=== PATIENT | female | born 1985 | race Caucasian/White ===

== ENCOUNTER 2022-02-23 16:38 | Emergency (ER) | payer OTHER ==
[2022-02-23 17:32] LABS: Absolute Lymphocytes (CBC) 1.6 K/uL (0.7-4.9); Hematocrit 38.6 % (36.0-45.0); Lymphocytes % 19.6 % (15.3-44.8); MPV 11.2 fL (7.6-11.3); RBC Red Blood Cell Count 4.34 M/uL (3.86-4.86)
--- NOTE | 2022-02-23 17:56 | RAD REPORT ---
EXAM DESCRIPTION: RAD - Chest Single View - 02/23/2022 5:46 pm CLINICAL HISTORY: CHEST PAIN COMPARISON: No comparisons FINDINGS: Lines: None. Lungs: No evidence of edema or pneumonia. Pleural: No significant pleural effusions or pneumothorax. Cardiac: The heart size is within normal limits. Bones: No acute fractures. Other: IMPRESSION: No acute cardiopulmonary disease.
[2022-02-23 17:59] LABS: BUN Blood Urea Nitrogen 10 mg/dL (7-18); Bicarbonate 27 mmol/L (21-32); Creatine Phosphokinase 50 U/L (26-192); Glucose Level 93 mg/dL (74-106); Magnesium 2.2 mg/dL (1.8-2.4); NT PRO-BNP 50 pg/mL (<125); Potassium 3.5 mmol/L (3.5-5.1); Sodium Level 141 mmol/L (136-145); Troponin High Sensitivity 3.4 pg/mL (<58.9)
[2022-02-23 18:03] LABS: C-Reactive Protein < 2.90 mg/L (<3.00)
[2022-02-23] MEDS ORDERED: KETOROLAC 30 MG/ML INJ ONE (18:13)
--- NOTE | 2022-02-23 18:14 | EDPHYS ---
Physician Documentation [facility] Name: Stefany Webb Age: 37 yrs Sex: Female : 1985 Arrival Date: 02/23/2022 Time: 16:39 Bed 10 Private MD: ED Physician Crispin Corona HPI: 02/23 17:11 This 37 yrs old Female presents to ER via Ambulatory with complaints of Arm Pain, Leg jr8 Pain, Chest Pain, finger numbness. 17:11 The patient or guardian reports chest pain that is located primarily in the substernal jr8 area, anterior chest wall, left. The pain radiates to the left arm, the left scapula. Associated signs and symptoms: Pertinent positives: tingling left arm. The chest pain is described as sharp. Duration: The patient or guardian reports multiple episodes, that are intermittent. Modifying factors: The symptoms are alleviated by nothing. the symptoms are aggravated by nothing. Severity of pain: At its worst the pain was moderate in the emergency department the pain is unchanged. The patient has not experienced similar symptoms in the past. The patient has not recently seen a physician. 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 - Social history:: Smoking status: Patient denies any tobacco usage or history of. ROS: 17:11 Eyes: Negative for injury, pain, redness, and discharge, ENT: Negative for injury, jr8 pain, and discharge, Neck: Negative for injury, pain, and swelling, Respiratory: Negative for shortness of breath, cough, wheezing, and pleuritic chest pain, Abdomen/GI: Negative for abdominal pain, nausea, vomiting, diarrhea, and constipation, Back: Negative for injury and pain, MS/Extremity: Negative for injury and deformity, Skin: Negative for injury, rash, and discoloration, Neuro: Negative for headache, weakness, numbness, tingling, and seizure. 17:11 Cardiovascular: Positive for chest pain, Negative for edema, orthopnea, palpitations, paroxysmal nocturnal dyspnea. Exam: 17:11 Constitutional: This is a well developed, well nourished patient who is awake, alert, jr8 and in no acute distress. Neck: Trachea midline, no thyromegaly or masses palpated, and no cervical lymphadenopathy. Supple, full range of motion without nuchal rigidity, or vertebral point tenderness. No Meningismus. Cardiovascular: Regular rate and rhythm with a normal S1 and S2. No gallops, murmurs, or rubs. Normal PMI, no JVD. No pulse deficits. Respiratory: Lungs have equal breath sounds bilaterally, clear to auscultation and percussion. No rales, rhonchi or wheezes noted. No increased work of breathing, no retractions or nasal flaring. Abdomen/GI: Soft, non-tender, with normal bowel sounds. No distension or tympany. No guarding or rebound. No evidence of tenderness throughout. Back: No spinal tenderness. No costovertebral tenderness. Full range of motion. Skin: Warm, dry with normal turgor. Normal color with no rashes, no lesions, and no evidence of cellulitis. MS/ Extremity: Pulses equal, no cyanosis. Neurovascular intact. Full, normal range of motion. Neuro: Awake and alert, GCS 15, oriented to person, place, time, and situation. Cranial nerves II-XII grossly intact. Motor strength 5/5 in all extremities. Sensory grossly intact. 17:11 Chest/axilla: Inspection: normal, Palpation: tenderness, that is mild, of the anterior aspect of left upper chest, that does not reproduce the patient's complaints, Axilla: are normal, no mass, no palpable nodes. 18:29 ECG was reviewed by the Attending Physician. jr8 Vital Signs: 16:51 BP 153 / 97; Pulse 88; Resp 18 S; Temp 98.5(TE); Pulse Ox 100% on R/A; Weight 65.77 kg aa5 (R); Height 5 ft. 11 in. (180.34 cm) (R); 18:10 BP 142 / 89; Pulse 85; Resp 15; Pulse Ox 100% ; jl7 16:51 Body Mass Index 20.22 (65.77 kg, 180.34 cm) aa5 MDM: 16:55 Patient medically screened. 8 18:07 Data reviewed: vital signs, nurses notes, lab test result(s), EKG, radiologic studies, jr8 plain films. Data interpreted: Pulse oximetry: on room air is 100 %. Interpretation: normal. Counseling: I had a detailed discussion with the patient and/or guardian regarding: the historical points, exam findings, and any diagnostic results supporting the discharge/admit diagnosis, lab results, radiology results, the need for outpatient follow up, a medical donation professional, to return to the emergency department if symptoms worsen or persist or if there are any questions or concerns that arise at home. 18:13 Special discussion: Based on the patient's history, exam, and Dx evaluation, there is jr8 no indication for emergent intervention or inpatient Tx. It is understood by the patient/guardian that if the Sx's persist or worsen they need to return immediately for re-evaluation. 02/23 16:58 Order name: Basic Metabolic Panel; Complete Time: 18:07 jr8 02/23 16:58 Order name: CBC with Diff; Complete Time: 18:00 8 02/23 16:58 Order name: Magnesium; Complete Time: 18: jr8 02/23 16:58 Order name: NT PRO-BNP; Complete Time: 18: jr8 02/23 16:58 Order name: Troponin HS; Complete Time: 18: jr8 02/23 16:58 Order name: XRAY Chest (1 view); Complete Time: 18:00 jr8 02/23 16:58 Order name: EKG; Complete Time: 16:59 jr8 02/23 17:11 Order name: ESR; Complete Time: 18:00 jr8 02/23 17:24 Order name: Creatine Phosphokinase; Complete Time: 18:07 EDMS 02/23 17:24 Order name: C-Reactive Protein; Complete Time: 18:07 EDMS 02/23 16:58 Order name: EKG - Nurse/Tech; Complete Time: 17:05 jr8 02/23 16:58 Order name: IV Saline Lock; Complete Time: 17:24 jr8 02/23 16:58 Order name: Labs collected and sent; Complete Time: 17:24 jr8 02/23 16:58 Order name: O2 Per Protocol; Complete Time: 17: jr8 02/23 16:58 Order name: O2 Sat Monitoring; Complete Time: : EC:29 Rate is 89 beats/min. Rhythm is regular, Normal Sinus Rhythm. QRS [place] is Normal. SC jr8 interval is normal. QRS interval is normal. QT interval is normal. No Q waves. T waves are Normal. No ST changes noted. Clinical impression: Normal ECG. Interpreted by me. Reviewed by me. Administered Medications: 18:10 Drug: Ketorolac 15 mg Route: IVP; Site: right antecubital; jl7 18:27 Follow up: Response: No adverse reaction; Pain is decreased jl7 Disposition: 19:03 Co-signature as Attending Physician, Crispin Corona MD. rn Disposition Summary: 02/23/22 18:13 Discharge Ordered Location: Home jr8 Problem: new jr8 Symptoms: have improved jr8 Condition: Stable jr8 Diagnosis - Chest pain, unspecified jr8 Followup: jr8 - With: William Lou MD - When: 2 - 3 days - Reason: Recheck today's complaints, Continuance of care, Re-evaluation by your physician Discharge Instructions: - Discharge Summary Sheet jr8 - Nonspecific Chest Pain, Adult jr8 Forms: - Medication Reconciliation Form jr8 - Thank You Letter jr8 - Antibiotic Education jr8 - Prescription Opioid Use jr8 Signatures: Dispatcher [employer] EDMS Crispin Corona MD MD rn Calderon, Audri RN RN aa5 True Wright PA PA jr8 Charo Soto RN RN jl7 Corrections: (The following items were deleted from the chart) 17:24 17:12 CREATINE PHOSPHOKINASE+C.LAB.BRZ ordered. EDMS EDMS 17:24 17:12 C-REACTIVE PROTEIN+C.LAB.BRZ ordered. EDMS EDMS
--- NOTE | 2022-02-23 18:14 | ER ---
Nurse's Notes [facility] Name: Stefany Webb Age: 37 yrs Sex: Female : 1985 Arrival Date: 02/23/2022 Time: 16:39 Bed 10 Private MD: Diagnosis: Chest pain, unspecified Presentation: 02/23 16:51 Chief complaint: Patient states: "I've been having chest pain for months and today I aa5 feel short of breath and the dental office receptionist at the [facility] [employer] sent me here". Coronavirus screen: At this time, the client does not indicate any symptoms associated with coronavirus-19. Ebola Screen: No symptoms or risks identified at this time. Initial Sepsis Screen: Does the patient meet any 2 criteria? No. Patient's initial sepsis screen is negative. Does the patient have a suspected source of infection? No. Patient's initial sepsis screen is negative. Risk Assessment: Do you want to hurt yourself or someone else? Patient reports no desire to harm self or others. Onset of symptoms was 2021. 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 - Social history:: Smoking status: Patient denies any tobacco usage or history of. Screenin:10 Abuse screen: Denies threats or abuse. Denies injuries from another. Nutritional jl7 screening: No deficits noted. Tuberculosis screening: No symptoms or risk factors identified. Fall Risk IV access (20 points). Total Braeux Fall Scale indicates No Risk (0-24 pts). Assessment: 17:15 General: Appears in no apparent distress. uncomfortable, Behavior is calm, cooperative, jl7 appropriate for age. Pain: Complains of pain in anterior aspect of left upper chest Pain radiates to back Pain currently is 8 out of 10 on a pain scale. Quality of pain is described as sharp, Pain began gradually, Is continuous. Neuro: Level of Consciousness is awake, alert, obeys commands, Oriented to person, place, time, situation. Cardiovascular: Patient's skin is warm and dry. Rhythm is regular. Respiratory: Airway is patent Respiratory effort is even, unlabored, Respiratory pattern is regular, symmetrical. Derm: Skin is pink, warm \\T\\ dry. 18:25 Reassessment: Patient appears in no apparent distress at this time. Patient and/or jl7 family updated on plan of care and expected duration. Pain level reassessed. Patient is alert, oriented x 3, equal unlabored respirations, skin warm/dry/pink. Patient states feeling better. Patient states symptoms have improved. Vital Signs: 16:51 BP 153 / 97; Pulse 88; Resp 18 S; Temp 98.5(TE); Pulse Ox 100% on R/A; Weight 65.77 kg aa5 (R); Height 5 ft. 11 in. (180.34 cm) (R); 18:10 BP 142 / 89; Pulse 85; Resp 15; Pulse Ox 100% ; jl7 16:51 Body Mass Index 20.22 (65.77 kg, 180.34 cm) aa5 ED Course: 16:39 Patient arrived in ED. am2 16:51 Arm band placed on. aa5 16:52 Triage completed. aa5 16:55 True Wright PA is PHCP. jr8 16:55 Crispin Corona MD is Attending Physician. jr8 16:56 Charo Soto RN is Primary Nurse. jl7 17:00 Patient has correct armband on for positive identification. 5 17:30 Initial lab(s) drawn, by ri, sent to lab. EKG done, by ED staff, reviewed by True PEREZ. Inserted saline lock: 20 gauge in right antecubital area, using aseptic technique. Blood collected. 17:47 XRAY Chest (1 view) In Process Unspecified. EDMS 18:10 Pulse ox on. NIBP on. jl7 18:10 No provider procedures requiring assistance completed. Patient maintains SpO2 jl7 saturation greater than 95% on room air. 18:13 William Lou MD is Referral Physician. jr8 18:20 IV discontinued, intact, bleeding controlled, No redness/swelling at site. Pressure jl7 dressing applied. 18:21 IV discontinued, Pressure dressing applied. mh5 Administered Medications: 18:10 Drug: Ketorolac 15 mg Route: IVP; Site: right antecubital; 7 18:27 Follow up: Response: No adverse reaction; Pain is decreased jl7 Outcome: 18:13 Discharge ordered by . nilsa 18:30 Discharged to home ambulatory. jl7 18:30 Condition: stable 18:30 Discharge instructions given to patient, Instructed on discharge instructions, follow up and referral plans. Demonstrated understanding of instructions, follow-up care. 18:30 Patient left the ED. jl7 Signatures: Dispatcher [employer] EDMS Manuela Miranda, RN RN aa5 True Wright PA PA 8 Mi iRch 5 Charo Soto RN RN jl7 Grace Coe Corrections: (The following items were deleted from the chart) 16:53 16:53 LMP 01/24/2000 [facility]
[2022-02-23 20:37] VITALS: TEMP 98.5; O2SAT 100
[2022-02-23 20:38] VITALS: BP 142/89
--- NOTE | 2022-02-24 09:33 | EKG ---
Test Date: 2022-02-23 Test Time: 17:05:11 Shoe Repairman: LUCITA MEASUREMENT RESULTS: Intervals: Rate: 89 ND: 138 QRSD: 76 QT: 374 QTc: 455 [place]: P: 62 ND: 138 QRS: 65 T: 94 INTERPRETIVE STATEMENTS: Normal sinus rhythm Cannot rule out Anteroseptal infarct, age undetermined Abnormal ECG No previous ECG available for comparison Electronically Signed On 02-24-22 09:31:47 CDT by William Lou
== END 2022-02-23 18:30 | disposition home or self-care (01) ==
LOC: ER 16:38
DX: R07.9 Chest pain, unspecified (principal)
CPT/HCPCS: 36415; 71045; 80048; 82550; 83735; 83880; 84484; 85025; 85652; 86140; 93005; 96374; 99284

== ENCOUNTER 2024-02-06 13:47 | Emergency (ER) | payer OTHER ==
--- OUTSIDE RECORDS SUMMARY | 2024-02-06 13:51 | XMS REPORT | Continuity of Care Document ---
Author Name Unknown Address [address] [place] [address] [facility] thconnect Address [address] [place] [address] Care Team Providers Care Gamemaster Name Role Phone No , Pcp Primary Care Physician CHRISTIANO El Attending Clinician LULA Correa Attending Clinician LULA Cordova Attending Clinician Luis Archibald MD, David Vazquez Attending Clini mya STEVE DELACRUZ Attending Clinician STEVE Simons Attending Clinician Regan jones Doctor Unassigned, [place] Attending Clinician DAVID Rm M.D. Attending Clinician Un available MD MAMADOU Attending Clinician Unavailable Payers Payer Name Policy Type Policy Number Effective Date Expirati on Date Source HARRY WERNER [id number] 2023 00:00:00 ANDIE Torres [id number] 2023 00:00:00 [facility] [id number] 2022 00:00:00 Problems Condition Name Condition Details Condition Category Status Onset Date Resolution Date Last Treatment Date Treating Clinician Comments Source Pain pelvic Pain pelvic Disease Active 03-16 00:00: 00 [facility] Menorrhagi a with regular cycle Menorrhagi a with regular cycle Disease Active 03-16 00:00: 00 [facility] IUD (intrauter ine device) in place IUD (intrauter ine device) in place Disease Active 03-16 00:00: 00 [facility] Missed Missed Disease Active 02-01 00:00: 00 Overview: Formattin g of this note might be different from the original. Added automatic ally from request for surgery [id number] [facility] Tubal ligation status Tubal ligation status Disease Active 01-25 00:00: 00 [facility] Supervisio n of high risk , antepartum Supervisio n of high risk , antepartum Disease Active 01-17 00:00: 00 [facility] [place]au disease [place] disease Disease Active 01-17 00:00: 00 [facility] Depression , unspecifie d depression type Depression , unspecifie d depression type Disease Active 01-17 00:00: 00 [facility] Family history of genetic disease Family history of genetic disease Disease Active 02-27 00:00: 00 [facility] Former smoker Former smoker Disease Active 02-14 00:00: 00 [facility] History of depression History of depression Problem Resolve d [facility] Word finding difficulty Word finding difficulty Problem Active [facility] Memory change Memory change Problem Active [facility] Attention and concentrat ion deficit Attention and concentrat ion deficit Problem Active [facility] 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 Problem Active [facility] Major depressive disorder, recurrent episode, moderate with anxious distress Major depressive disorder, recurrent episode, moderate with anxious distress Problem Active [facility] Insomnia, unspecifie d type Insomnia, unspecifie d type Problem Active [facility] Anxiety Anxiety Problem Active [facility] RLS (restless legs syndrome) RLS (restless legs syndrome) Problem Active [facility] Allergies, Adverse Reactions, Alerts Allergy Name Allergy Type Status Severity Reaction(s) Onset Date Inactive Date Treating Clinician Comments Source NO KNOWN ALLERGIE S Drug Class Active [facility] Family History Family Member Diagnosis Comments Start Date Stop Date Sourc e Unknown Family Member Family history of Alzheimer's disease Other [facility] Grandmother Family history of Alzheimer's disease [facility] Grandmother Family history of schizophrenia [facility] aunt Family history of Joseph's chorea [facility] Mother Family history of [place]'s chorea [facility] Father Family history of depression [facility] Father Family history of HT N (hypertension), benign [facility] Grandfather Family history of [place]'s chorea [facility] Social History Social Habit Start Date Stop Date Quantity Comments Source History of tobacco use Cigarette Smoker [facility] Sexual orientation [facility] Tobacco use and exposure 2023-08-18 00:00:00 2023-08-18 00:00:00 Smokeless tobacco non-user [facility] History of Social function 2023-08-18 00:00:00 2023-08-18 00:00:00 [facility] Cigarettes smoked current (pack per day) - Reported 2023-03-16 00:00:00 2023-03-16 00:00:00 [facility] Cigarette pack-years 2023-03-16 00:00:00 2023-03-16 00:00:00 [facility] Alcohol intake 2023-03-16 00:00:00 2023-03-16 00:00:00 Current non-drinker of alcohol (finding) [facility] Tobacco Comment 2023-03-16 00:00:00 2023-03-16 00:00:00 quit once she had postive test [facility] Sex Assigned At 1985 00:00:00 1985 00:00:00 [facility] Smoking Status Start Date Stop Date Source Smoker (finding) [facility] Smokes tobacco daily (finding) [facility] Ex-smoker 2023-08-18 00:00:00 2023-08-18 00:00:00 [facility] Medications Ordered Medication Name Filled Medication Name Start Date Stop Date Current Medication? Ordering Clinician Indication Dosage Frequency Signature (SIG) Comments Components Source vit calc,iron,f olic ( VITAMIN ORAL) 03-16 13:14: 42 Yes [id number] Take by mouth. [facility] vit calc,iron,f olic ( VITAMIN ORAL) 02-23 14:27: 26 Yes [id number] Take by mouth. [facility] ibuprofen 600 mg tablet 02-06 00:00: 00 Yes [id number] 600mg Take 1 tablet by mouth every 6 (six) hours as needed (pain, cramping). [facility] acetaminoph en (TYLENOL) 325 mg Cap 02-06 00:00: 00 Yes [id number] 650mg Take 650 mg by mouth every 6 (six) hours as needed (pain, cramping). [facility] DULoxetine HCl - 60 MG Oral Capsule Delayed Release Particles DULoxetine HCl - 60 MG Oral Capsule Delayed Release Particles 2017-11 00:00: 00 Yes DAVID LISSETTE-STIMM ING M.D. TAKE ONE CAPSULE BY MOUTH DAILY [facility] clonazePAM 0.5 MG Oral Tablet clonazePAM 0.5 MG Oral Tablet 2017-11 00:00: 00 Yes DAVID LISSETTE-STIMM ING M.D. TAKE 1/2 TO 1 TABLET AT BEDTIME NEEDED. [facility] Melatonin 5 MG Oral Tablet Melatonin 5 MG Oral Tablet 05-26 00:00: 00 Yes MIGUEL FERRIS M.D. TAKE 1 TAB BY MOUTH AT BEDTIME. MAY TAKE AN ADDITIONAL TAB IF NOT EFFECTIVE IN 30 MINUTES OR IF WAKE IN NIGHT [facility] Tylenol PM Extra Strength 500-25 MG Oral Tablet Tylenol PM Extra Strength 500-25 MG Oral Tablet Yes [facility] Vital Signs Vital Name Observation Time Observation Value Comments S ource Systolic blood pressure 2023-03-16 18:13:00 136 mm[Hg] [facility] Diastolic blood pressure 2023-03-16 18:13:00 81 mm[Hg] [facility] Heart rate 2023-03-16 18:13:00 122 /min [facility] Body temperature 2023-03-16 18:13:00 36.72 Yolis [facility] Respiratory rate 2023-03-16 18:13:00 17 /min [facility] Body height 2023-03-16 18:13:00 180.3 cm [facility] Body weight 2023-03-16 18:13:00 67.132 kg [facility] BMI 2023-03-16 18:13:00 20.64 kg/m2 [facility] Procedures Procedure Date / Time Performed Performing Clinicia n Source ASSIGNMENT OF BENEFITS 2023-03-16 18:03:14 Docto r Unassigned, [place] [facility] [[facility]] CBC (INCLUDES DIFF/PLT) 2020-01-17 00:00:00 [facility] [H] Iron, TIBC \T\ Ferritin 2020-01-17 00:00:00 [facility] [QLH] VITAMIN B12 2020-01-17 00:00:00 [facility] [[facility]] TSH, 3RD GENERATION W/REFLEX TO FT4 2020-01-17 00:00:00 [facility] [[facility]] CMP W/EGFR 2020-01-17 00:00:00 [facility] [QL] CBC (INCLUDES DIFF/PLT) 2020-01-17 00:00:00 [facility] [QL] VITAMIN B12 2020-01-17 00:00:00 [facility] [QL] TSH, 3RD GENERATION W/REFLEX TO FT4 2020-01-17 00:00:00 [facility] [QL] CMP W/EGFR 2020-01-17 00:00:00 [facility] Encounters Start Date/Time End Date/Time Encounter Type Admission Type Attending Clinicians Care Facility Care Department Encounter ID Source 2022-06-01 15:03:27 Outpatient [facility] [id number] [facility] 2024-02-17 14:00:00 2024-02-17 14:00:00 Outpatient CHRISTIANO SILVA [facility] [id number] [facility] 2024-02-08 15:00:00 2024-02-08 15:00:00 Outpatient R YANG-TRACI S, LULA YANG-TRACI S, LULA [facility] [id number] [facility] 2023-09-29 13:00:00 2023-09-29 13:00:00 Outpatient [facility] [id number] [facility] 2023-08-18 14:30:00 2023-08-18 17:33:44 Telemedici David Craft [facility] [id number] [facility] [id number] [facility] 2023-04-07 13:00:00 2023-04-07 13:00:00 Outpatient R STEVE DELACRUZ [facility] [id number] [facility] 2023-03-16 13:15:00 2023-03-16 13:56:04 Office Visit Steve Delacruz [facility] [id number] [facility] 2023-03-16 13:15:00 2023-03-16 13:56:04 Outpatient R STEVE DELACRUZ [facility] [id number] [facility] 2023-03-16 00:00:00 2023-03-16 00:00:00 Orders Only Doctor Unassigned, [place] [facility] [id number] [facility] 2023-03-09 14:00:00 2023-03-09 14:00:00 Outpatient R STEVE DELACRUZ [facility] [id number] [facility] 2022-07-08 09:00:00 2022-07-08 09:00:00 Outpatient DAVID JOHNSON [facility] [id number] [facility] 2020-08-01 15:30:00 2020-08-01 15:30:00 Appointmen t; DAVID LOZOYA M.D. FURR-STIMMI NG, ERIN, M.D. [facility] Neurology [facility] [id number] [facility] 2020-02-07 14:00:00 2020-02-07 14:00:00 Appointmen t; MD MAMADOU CEDILLO MD [facility] Neurology [facility] [id number] [facility] 2020-01-10 14:00:00 2020-01-10 14:00:00 Appointmen t; MD MAMADOU CEDILLO MD [facility] Neurology - [facility] [id number] [facility] 2019-10-18 13:00:00 2019-10-18 13:00:00 Appointmen t; MD MAMADOU CEDILLO MD [facility] [id number] [facility] 2018-08-19 13:30:00 2018-08-19 13:30:00 Appointmen t; DAVID LOZOYA M.D. FURR-STIMMI NG, ERIN, M.D. [facility] Neurology [id number] [facility] 2017-06-23 10:00:00 2017-06-23 10:00:00 Appointmen t; DAVID LOZOYA M.D. FURR-STIMMI NG, ERIN, M.D. [facility] [id number] [facility] 2017-05-26 11:30:00 2017-05-26 11:30:00 Appointmen t; MD MAMADOU CEDILLO MD [facility] [id number] [facility]
--- NOTE | 2024-02-06 15:28 | RAD REPORT ---
EXAM DESCRIPTION: US - Transvaginal OB - 02/06/2024 3:14 pm CLINICAL HISTORY: ABD PAIN COMPARISON: No comparisons FINDINGS: Gestational sac identified with yolk sac. The gestational sac has a mean sac diameter of 8 millimeters which would be consistent with five week 4 day with an CARLOS of 10/04/2024. No pole identified likely due to early dates. The yolk sac measures 2 millimeters and has a normal morphology . The right ovary has volume of 3.4 cc. The left ovary is volume of 10.5 cc. Corpus luteal cyst in the left ovary. Both ovaries have vascular flow. IMPRESSION: Single IUP measuring 5 week 4 day with CARLOS of 10/04/2024. Lack of heart tones like ly due to early dates. Bilateral ovarian blood flow.
[2024-02-06 16:38] LABS: Absolute Basophils 0.1 K/uL (0-0.5); Absolute Eosinophils 0.2 K/uL (0-0.5); Absolute Lymphocytes (CBC) 1.7 K/uL (0.7-4.9); Absolute Monocytes 0.5 K/uL (0.1-1.3); Basophils % 0.9 % (0-1.3); Eosinophils % 2.2 % (0-4.4); Hematocrit 38.7 % (36.0-45.0); Hemoglobin 12.9 g/dL (12.0-15.0); Lymphocytes % 22.9 % (15.3-44.8); MCHC 33.4 g/dL (32.0-36.0); MCV 89.7 fL (80-100); MPV 10.9 fL (7.6-11.3); Monocytes % 6.6 % (3.3-12.3); Neutrophils % 67.4 % (41.7-73.7); Platelets 195 thou/uL (152-406); RBC Red Blood Cell Count 4.31 M/uL (3.86-4.86); Red Cell Distribution Width 13.8 % (12.1-15.2)
[2024-02-06 16:43] LABS: Sqamous Epithelial <5 /HPF (None Seen); Urine Bacteria <20 /HPF (<20); Urine Bilirubin NEGATIVE (Negative); Urine Blood Trace (Negative); Urine Clarity Clear (Clear); Urine Color Light-Yellow (Yellow); Urine Culture Reflex Order NOT NEEDED; Urine Glucose NEGATIVE (Negative); Urine Ketones NEGATIVE (Negative); Urine Microscopic Reflex YN ORDER UMIC; Urine Mucus Slight /HPF (None Seen); Urine Nitrite NEGATIVE (Negative); Urine Protein NEGATIVE (Negative); Urine Urobilinogen Normal (Normal); Urine WBC None Seen /HPF (<5)
--- NOTE | 2024-02-06 17:23 | EDPHYS ---
Physician Documentation [facility] Name: Stefany Webb Age: 38 yrs Sex: Female : 1985 Arrival Date: 02/06/2024 Time: 13:47 Bed 2 Private MD: ED Physician Javier Meyer HPI: 02/05 14:19 This 38 yrs old Female presents to ER via Ambulatory with complaints of 5wks , kb Abdominal Cramping. 14:19 Patient is a 38-year-old female who presents for lower abdominal cramping that has been kb intermittent since Wednesday but today is worse. LMP 01/06/2024. G7, . Patient denies vaginal bleeding. No aggravating or alleviating factors.. 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 - Infectious Disease History:: Denies. - Social history:: Smoking status: Patient denies any tobacco usage or history of. ROS: 14:19 Constitutional: As per HPI kb Exam: 14:19 Constitutional: This is a well developed, well nourished patient who is awake, alert, kb and in no acute distress. Head/Face: Normocephalic, atraumatic. ENT: Moist Mucous membranes Cardiovascular: Regular rate Respiratory: Respirations even and unlabored. No increased work of breathing. Talking in full sentences Abdomen/GI: Soft, non-tender. No distention Skin: Warm, dry with normal turgor. Normal color. MS/ Extremity: Pulses equal, no cyanosis. Neurovascular intact. Full, normal range of motion. Neuro: Awake and alert, GCS 15, oriented to person, place, time, and situation. Moves all extremities. Normal gait. Vital Signs: 13:57 BP 135 / 89; Pulse 93; Resp 16; Temp 99.1(O); Pulse Ox 100% ; Weight 63.5 kg; Height 5 nj1 ft. 11 in. ; Pain 5/10; 13:57 Body Mass Index 19.53 (63.50 kg, 180.34 cm) nj1 13:57 Pain Scale: Adult nj1 MDM: 14:01 Patient medically screened. kb 17:29 Differential diagnosis: threatened Ab, inevitable Ab, ectopic . Data reviewed: kb vital signs, nurses notes. Counseling: I had a detailed discussion with the patient and/or guardian regarding the historical points, exam findings, and any diagnostic results supporting the discharge/admit diagnosis, lab results, radiology results, the need for outpatient follow up, an OB/Gyne specialist, to return to the emergency department if symptoms worsen or persist or if there are any questions or concerns that arise at home. 02/05 14:01 Order name: Abo/rh Typing kb 02/05 14:01 Order name: Basic Metabolic Panel; Complete Time: 17:22 kb 02/05 14:01 Order name: CBC with Diff; Complete Time: 16:48 kb 02/05 14:01 Order name: Test, Urine; Complete Time: 16:42 kb 02/05 14:01 Order name: Quantitative Hcg; Complete Time: 17:22 kb 02/05 14:01 Order name: Urinalysis w/ reflexes; Complete Time: 16:43 kb 02/05 14:01 Order name: US Transvaginal Ob; Complete Time: 15:30 kb 02/05 14:01 Order name: IV Saline Lock; Complete Time: 16:05 kb 02/05 14:01 Order name: Labs collected and sent; Complete Time: 17:09 kb 02/05 14:01 Order name: NPO; Complete Time: 17:09 kb Administered Medications: No medications were administered Disposition Summary: 02/06/24 17:22 Discharge Ordered Notes: Location: Home kb Condition: Stable kb Diagnosis - Less than 8 weeks gestation of kb Followup: kb - With: Emergency Department - When: As needed - Reason: Worsening of condition Followup: kb - With: Private Physician - When: 2 - 3 days - Reason: Recheck today's complaints, Continuance of care, Re-evaluation by your physician Discharge Instructions: - Discharge Summary Sheet kb - First Trimester of , [id number] kb Forms: - Medication Reconciliation Form kb - Thank You Letter kb - Antibiotic Education kb - Prescription Opioid Use kb - Patient Portal Instructions kb - Leadership Thank You Letter kb Signatures: Dispatcher [employer] Monik Canseco, RELEASE ENGINEER-C RELEASE ENGINEER-Ckb Tegan Garcia, RN RN nj1
--- NOTE | 2024-02-06 17:23 | ER ---
Nurse's Notes [facility] Name: Stefany Webb Age: 38 yrs Sex: Female : 1985 Arrival Date: 02/06/2024 Time: 13:47 Bed 2 Private MD: Diagnosis: Less than 8 weeks gestation of Presentation: 02/05 13:57 Chief complaint: Patient states: Abdominal cramping since Wednesday, getting worse. 5 nj1 weeks . . Denies vaginal bleeding. Coronavirus screen: Vaccine status: Patient reports being unvaccinated. Ebola Screen: Patient denies travel to an Ebola-affected area in the 21 days before illness onset. Initial Sepsis Screen: Does the patient meet any 2 criteria? HR > 90 bpm. No. Patient's initial sepsis screen is negative. Does the patient have a suspected source of infection? No. Patient's initial sepsis screen is negative. Risk Assessment: Do you want to hurt yourself or someone else? Patient reports no desire to harm self or others. Onset of symptoms was February 01, 2024. 13:57 Method Of Arrival: Ambulatory [facility] 13:57 Acuity: ANGIE 3 nj1 Triage Assessment: 14:00 General: Appears in no apparent distress. comfortable, Behavior is calm, cooperative, nj1 appropriate for age. Pain: Complains of pain in abdomen Pain currently is 5 out of 10 on a pain scale. Quality of pain is described as crampy. GI: Reports lower abdominal pain. 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 - Infectious Disease History:: Denies. - Social history:: Smoking status: Patient denies any tobacco usage or history of. Screenin:06 [facility] ED Fall Risk Assessment (Adult) Score/Fall Risk Level 0 - 2 = Low Risk. Abuse iw screen: Denies threats or abuse. Denies injuries from another. Nutritional screening: No deficits noted. Tuberculosis screening: No symptoms or risk factors identified. Assessment: 16:05 General: Appears in no apparent distress. Behavior is calm, cooperative. Pain: iw Complains of pain in suprapubic area. Neuro: Level of Consciousness is awake, alert, obeys commands, Oriented to person, place, time, situation, Moves all extremities. Full function. GI: : Reports pain in suprapubic area Denies vaginal bleeding. Derm: Skin is intact, is healthy with good turgor. 17:20 Reassessment: Patient appears in no apparent distress at this time. Patient and/or iw family updated on plan of care and expected duration. Pain level reassessed. Patient is alert, oriented x 3, equal unlabored respirations, skin warm/dry/pink. GI: Vital Signs: 13:57 BP 135 / 89; Pulse 93; Resp 16; Temp 99.1(O); Pulse Ox 100% ; Weight 63.5 kg; Height 5 nj1 ft. 11 in. ; Pain 5/10; 13:57 Body Mass Index 19.53 (63.50 kg, 180.34 cm) nj1 13:57 Pain Scale: Adult nj1 ED Course: 13:51 Patient arrived in ED. mr 13:59 Triage completed. nj1 13:59 Arm band placed on right wrist. nj1 14:01 Monik Nickerson FNP-C [facility]. kb 14:01 Javier Meyer MD is Attending Physician. kb 15:16 Transvaginal Ob In Process Unspecified. EDMS 15:53 Radha Baires, RN is Primary Nurse. iw 16:00 Initial lab(s) drawn, by me, sent to lab. Inserted saline lock: 22 gauge in left iw antecubital area, using aseptic technique. Blood collected. 16:05 Patient has correct armband on for positive identification. Provided Education on: need iw for labs. 17:25 No provider procedures requiring assistance completed. IV discontinued, intact, iw bleeding controlled, No redness/swelling at site. Pressure dressing applied. Administered Medications: No medications were administered Medication: 16:06 VIS not applicable for this client. iw Outcome: 17:22 Discharge ordered by . kb 17:25 Discharged to home ambulatory, with family, iw 17:25 Condition: good 17:25 Discharge instructions given to patient, Instructed on discharge instructions, follow up and referral plans. Demonstrated understanding of instructions, follow-up care, 17:25 Patient left the ED. iw Signatures: Dispatcher [employer] EDMS Monik Nickerson, COMMERCIAL LINES UNDERWRITER-C COMMERCIAL LINES UNDERWRITER-Hortencia Corral, Reg Reg mr Radha Baires, RN RN iw Tegan Garcia RN RN nj1
[2024-02-06 22:48] VITALS: BP 135/89; TEMP 99.1; O2SAT 100
== END 2024-02-06 17:25 | disposition home or self-care (01) ==
LOC: ER 13:47
DX: O26.891 Other specified pregnancy related conditions, first trimester (principal); Z3A.01 Less than 8 weeks gestation of pregnancy; Z28.310 Unvaccinated for COVID-19
CPT/HCPCS: 36415; 76817; 80048; 81001; 81025; 84702; 85025; 86900; 86901; 99283